=== PATIENT | female | born 1950 | race Hispanic/Latino ===

== ENCOUNTER → 2018-11-10 | Outpatient (CLI) | payer MEDICARE ==
--- NOTE | 2018-11-10 13:07 | Diagnostic Imaging Report ---
EXAMINATION: KNEE LEFT THREE VIEWS INDICATION: Left knee pain COMPARISON: None FINDINGS: AP, lateral and oblique images of the left knee were obtained. No acute fracture or dislocation. No substantial degenerative change. No joint effusion. Alignment is anatomic. IMPRESSION: No acute osseous injury. No substantial degenerative change. Signed by: Olga Lidia Rodrigez MD on 11/10/2018 1:04 PM
== END ==
LOC: RAD 12:25
PROVIDERS: ATTEND Internal Medicine
DX: M17.12 Unilateral primary osteoarthritis, left knee (principal)

== ENCOUNTER → 2020-07-18 | Outpatient (CLI) | payer MEDICARE | LOC: MAMMO 09:20 | PROVIDERS: ATTEND Internal Medicine | DX: Z12.31 Encounter for screening mammogram for malignant neoplasm of breast (principal) | CPT/HCPCS: 77067 ==

== ENCOUNTER → 2022-12-10 | Outpatient (REF) | payer MEDICARE | LOC: MAMMO 13:13 | PROVIDERS: ATTEND Internal Medicine | DX: Z12.31 Encounter for screening mammogram for malignant neoplasm of breast (principal) | CPT/HCPCS: 77067 ==

== ENCOUNTER → 2024-09-20 | Outpatient (REF) | payer MEDICARE | LOC: MAMMO 09:31 | PROVIDERS: ATTEND Internal Medicine | DX: Z12.31 Encounter for screening mammogram for malignant neoplasm of breast (principal); Z13.820 Encounter for screening for osteoporosis | CPT/HCPCS: 77067; 77080 ==